=== PATIENT | male | born 2000 | race Caucasian/White ===

== ENCOUNTER 2023-04-06 21:45 | Emergency (ER) | payer OTHER ==
[~2023-04-06] VITALS: Ht 182.8 cm; Wt 81.6 kg
--- NOTE | 2023-04-06 22:10 | ED General ---
General Stated Complaint: FEVER, WEAKNESS, FLU-LIKE SYMPTOMS Source of Information: Patient Exam Limitations: No Limitations History of Present Illness Date Seen by Provider: Apr 06, 2023 Time Seen by Provider: 22:06 Initial Comments Patient is a 23-year-old male who presents the ED with flulike symptoms. Patient states symptoms started a few weeks ago with with allergy type symptoms nasal congestion mild cough. The symptoms did improve until this morning. patient woke up with chills and body aches. Reports diffuse body pains. Reports cough with pain with deep inspiration. Reports nausea without vomiting or diarrhea. No shortness of breath, sore throat, ear pain. Patient went to the [facility] and tested negative for COVID influenza and strep. States symptoms became worse today. Patient did take ibuprofen. Denies of any specific chest pain abdominal pain headache visual changes, unilateral muscle weakness or sensory changes or neck pain. Denies history of asthma. Denies smoking. Patient is otherwise healthy. States he did have a temperature 105 at home Allergies and Home Medications Allergies Coded Allergies: No Known Drug Allergies (Unverified , 04/06/23) Patient Home Medication List Home Medication List Reviewed: Yes Doxycycline Monohydrate (Doxycycline Monohydrate) 100 Mg Tablet, 100 MG PO BID Prescribed by: SONJA BROWN on 04/06/23 4720 Review of Systems Review of Systems Constitutional: No chills, No diaphoresis; fever, malaise, weakness EENTM: No see HPI, No ear pain, No blurred vision, No double vision Respiratory: cough Cardiovascular: No chest pain Gastrointestinal: No abdominal pain, No diarrhea; nausea; No vomiting Genitourinary: No decreased output, No discharge Musculoskeletal: No back pain, No joint pain Skin: No change in color, No change in hair/nails All Other Systems Reviewed Negative Unless Noted: Yes Physical Exam Vital Signs Vital Signs - First Documented 04/06/23 21:54 Temp 37.8 Pulse 126 Resp 16 B/P (MAP) 120/91 (101) Pulse Ox 94 O2 Delivery Room Air Capillary Refill : Height, Weight, BMI Height: '" Weight: lbs. oz. kg; BMI Method: General Appearance: No Apparent Distress, WD/WN Eyes: Bilateral Eye Normal Inspection, Bilateral Eye PERRL, Bilateral Eye EOMI HEENT: PERRL/EOMI, TMs Normal, Normal ENT Inspection, Other (Oropharynx with erythema without swelling or exudate. No uvula deviation. Bilateral TMs clear) Neck: Full Range of Motion, Normal Inspection, Non Tender, Supple Respiratory: Chest Non Tender, Lungs Clear, Normal Breath Sounds, No Accessory Muscle Use, No Respiratory Distress Cardiovascular: No Edema, No Gallop, No JVD, No Murmur, Tachycardia Gastrointestinal: Normal Bowel Sounds, No Organomegaly, No Pulsatile Mass Back: Normal Inspection, No CVA Tenderness, No Vertebral Tenderness Extremity: Normal Capillary Refill, Normal Inspection, Normal Range of Motion, Non Tender Neurologic/Psychiatric: Alert, Oriented x3, No Motor/Sensory Deficits, Normal Mood/Affect, flower grower II-XII Norm as Tested Skin: Normal Color, Warm/Dry Progress/Results/Core Measures Suspected Sepsis SIRS Temperature: Pulse: Respiratory Rate: Laboratory Tests 04/06/23 22:05: White Blood Count 16.4H Blood Pressure / Mean: Laboratory Tests 04/06/23 22:05: Creatinine 1.33H, Platelet Count 251, Total Bilirubin 1.3H Results/Orders Lab Results Laboratory Tests Test 04/06/23 22:05 Range/Units White Blood Count 16.4 H 4.3-11.0 10^3/uL Red Blood Count 5.29 4.30-5.52 10^6/uL Hemoglobin 15.2 13.3-17.7 g/dL Hematocrit 45 40-54 % Mean Corpuscular Volume 84 80-99 fL Mean Corpuscular Hemoglobin 29 25-34 pg Mean Corpuscular Hemoglobin Concent 34 32-36 g/dL Red Cell Distribution Width 11.7 10.0-14.5 % Platelet Count 251 130-400 10^3/uL Mean Platelet Volume 10.4 9.0-12.2 fL Immature Granulocyte % (Auto) 0 % Neutrophils (%) (Auto) 86 H 42-75 % Lymphocytes (%) (Auto) 9 L 12-44 % Monocytes (%) (Auto) 4 0-12 % Eosinophils (%) (Auto) 0 0-10 % Basophils (%) (Auto) 0 0-10 % Neutrophils # (Auto) 14.1 H 1.8-7.8 10^3/uL Lymphocytes # (Auto) 1.5 1.0-4.0 10^3/uL Monocytes # (Auto) 0.6 0.0-1.0 10^3/uL Eosinophils # (Auto) 0.0 0.0-0.3 10^3/uL Basophils # (Auto) 0.0 0.0-0.1 10^3/uL Immature Granulocyte # (Auto) 0.1 0.0-0.1 10^3/uL Neutrophils % (Manual) 82 % Lymphocytes % (Manual) 14 % Monocytes % (Manual) 3 % Basophils % (Manual) 1 % Platelet Estimate ADEQUATE Blood Morphology Comment NORMAL Sodium Level 137 135-145 MMOL/L Potassium Level 4.0 3.6-5.0 MMOL/L Chloride Level 102 98-107 MMOL/L Carbon Dioxide Level 23 21-32 MMOL/L Anion Gap 12 5-14 MMOL/L Blood Urea Nitrogen 14 7-18 MG/DL Creatinine 1.33 H 0.60-1.30 MG/DL Estimat Glomerular Filtration Rate 78 BUN/Creatinine Ratio 11 Glucose Level 102 70-105 MG/DL Calcium Level 9.5 8.5-10.1 MG/DL Corrected Calcium 9.1 8.5-10.1 MG/DL Total Bilirubin 1.3 H 0.1-1.0 MG/DL Aspartate Amino Transf (AST/SGOT) 18 5-34 U/L Alanine Aminotransferase (ALT/SGPT) 12 0-55 U/L Alkaline Phosphatase 86 40-136 U/L C-Reactive Protein High Sensitivity 7.28 H 0.00-0.50 MG/DL Total Protein 7.8 6.4-8.2 GM/DL Albumin 4.5 3.2-4.5 GM/DL My Orders Orders - ELIU COX PA Cbc And Automated Diff (04/06/23 22:01) Comprehensive Metabolic Panel (04/06/23 22:01) Hs C Reactive Protein (04/06/23 22:01) Ns Iv 1000 Ml (Ns Iv 1000 Ml) (04/06/23 22:15) Chest 1 View, Ap/Pa Only (04/06/23 22:01) Ondansetron Injection (Ondansetron Inj (04/06/23 22:15) Acetaminophen Tablet (Acetaminophen Ta (04/06/23 22:15) Manual Differential (04/06/23 22:05) Ceftriaxone Iv/Im (Ceftriaxone Iv/Im) (04/06/23 22:46) Medications Given in ED Vital Signs/I&O 04/06/23 04/06/23 04/06/23 21:54 22:17 23:12 Temp 37.8 37.8 Pulse 126 107 Resp 16 16 B/P (MAP) 120/91 (101) 118/64 Pulse Ox 94 96 O2 Delivery Room Air Room Air Capillary Refill : Departure Communication (PCP) Differential diagnosis pneumonia, viral syndrome, strep. Patient was febrile and tachycardic. States he had allergy type symptoms over the past 2 weeks did improve until today started having chills body aches feverish cough mild sore throat. States he had a negative COVID influenza and strep today at [facility]. Reports worsening symptoms. Reports temperature 105 at home. Patient had a temperature 37.8. He was tachycardic. Lung sounds was fairly clear throughout. Exam was otherwise benign. No evidence of strep. Tolerating secretions. Bilateral TMs clear. Soft abdomen without tenderness. Healthy individual without known medical problems. CBC, CMP, CRP, chest x-ray was ordered. Did receive a liter of fluid. CBC showed an elevated white blood count 16. Creatinine 1.33. CRP is 7. Chest x-ray concerning for right perihilar pneumonia. This was reviewed by myself verified by radiology. Patient did receive a dose of Rocephin 1g here. Since patient is a healthy individual I do think 1 antibiotics such as doxycycline would be reasonable for patient at this time to treat community-acquired pneumonia. Patient heart rate improved. He does not appear toxic but does appear ill. No evidence of respiratory distress. 96 on room air. Did receive Tylenol and Zofran for the fever and nausea. States he feels much better after the fluids. Will discharge with doxycycline. Suggest recheck with your PCP in 2 to 3 days for reevaluation. If any worsening symptoms to return back to ED for further evaluation. Impression Primary Impression: Pneumonia Disposition: 01 HOME, SELF-CARE Condition: Stable Departure-Patient Inst. Decision time for Depature: 22:49 Referrals: NO,LOCAL PHYSICIAN (PCP) Primary Care Physician [facility] Patient Instructions: Pneumonia, Adult (DC) Add. Discharge Instructions: Take antibiotics as prescribed. Recommend alternating Tylenol ibuprofen at home for pain and fever. Recommend oral hydration. Scripts Doxycycline Monohydrate (Doxycycline Monohydrate) 100 Mg Tablet 100 MG PO BID for 7 Days, #14 TAB Prov: ELIU COX 04/06/23 Work/School Note: School/Childcare Release, Date Seen in the Emergency Department: Apr 06, 2023 Time Dismissed from Emergency Department: 22:50 Return to School: Apr 09, 2023 Work Release Form Date Seen in the Emergency Department: Apr 06, 2023 Return to Work: Apr 09, 2023 ELIU COX Apr 06, 2023 22:10
[2023-04-06 22:13] LABS: BASOPHILS % (AUTO) 0 % (0-10); EOSINOPHILS % (AUTO) 0 % (0-10); HEMATOCRIT 45 % (40-54); HEMOGLOBIN 15.2 g/dL (13.3-17.7); LYMPHOCYTES # (AUTO) 1.5 10^3/uL (1.0-4.0); LYMPHOCYTES % (AUTO) 9 % (12-44); MEAN CORPUSCULAR HEMOGLOBIN 29 pg (25-34); MEAN CORPUSCULAR HGB CONC 34 g/dL (32-36); MEAN CORPUSCULAR VOLUME 84 fL (80-99); MEAN PLATELET VOLUME 10.4 fL (9.0-12.2); MONOCYTES # (AUTO) 0.6 10^3/uL (0.0-1.0); MONOCYTES % (AUTO) 4 % (0-12); NEUTROPHILS # (AUTO) 14.1 10^3/uL (1.8-7.8); NEUTROPHILS % (AUTO) 86 % (42-75); PLATELET COUNT 251 10^3/uL (130-400); WHITE BLOOD COUNT 16.4 10^3/uL (4.3-11.0)
[2023-04-06] MEDS ORDERED: ACETAMINOPHEN 500 MG TABLET PO ONE (22:15)
[2023-04-06] MEDS ORDERED: ONDANSETRON INJECTION 4 MG/2 ML (SDV) IVP ONE (22:15)
[2023-04-06] MEDS ORDERED: NS IV 1000 ML 1,000 ML IV SCH (22:15)
[2023-04-06 22:27] LABS: ALBUMIN 4.5 GM/DL (3.2-4.5)
[2023-04-06 22:28] LABS: CALCIUM 9.5 MG/DL (8.5-10.1)
[2023-04-06 22:30] LABS: TOTAL PROTEIN 7.8 GM/DL (6.4-8.2)
[2023-04-06 22:32] LABS: BILIRUBIN,TOTAL 1.3 MG/DL (0.1-1.0)
[2023-04-06 22:33] LABS: CREATININE SERUM 1.33 MG/DL (0.60-1.30)
[2023-04-06] MEDS ORDERED: cefTRIAXone IV/IM 1,000 MG in NS (IVPB) 50 ML 50 ML IV STA (22:46)
[2023-04-06 22:47] LABS: BASOPHILS % (MANUAL) 1 %; LYMPHOCYTES % (MANUAL) 14 %; MONOCYTES % (MANUAL) 3 %; NEUTROPHILS % (MANUAL) 82 %
[2023-04-06 22:48] LABS: PLATELET ESTIMATE ADEQUATE; RBC MORPH NORMAL
[2023-04-06] MEDS ORDERED: DOXY100T31 PO (22:50)
[2023-04-06 23:12] VITALS: BP 118/64
--- NOTE | 2023-04-07 06:57 | Diagnostic Imaging Report ---
EXAMINATION: Chest 1 view HISTORY: Cough. Congestion. COMPARISON: None available. FINDINGS: The lung volumes are normal. Patchy perihilar opacities are seen on the right. No large pleural effusion or pneumothorax is seen. The cardiomediastinal silhouette is normal in size and contour. No acute osseous abnormality is seen. IMPRESSION: 1. Patchy perihilar opacities on the right, which may represent hilar vessels versus atelectasis or infection. Dictated by: Dictated on workstation # [id number]
== END 2023-04-06 23:12 | disposition home or self-care (01) ==
LOC: ER 21:52
DX: J18.9 Pneumonia, unspecified organism (principal); R11.0 Nausea; R00.0 Tachycardia, unspecified
CPT/HCPCS: 36415; 71045; 80053; 85007; 85027; 86141